=== PATIENT | female | born 1965 | race Caucasian/White ===

== ENCOUNTER → 2018-01-30 | Outpatient (CLI) | payer MEDICARE, OTHER ==
--- NOTE | 2018-01-30 16:49 | RADIOLOGY REPORT (SQ) ---
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 TECHNIQUE: Noncontrast scanning from skull base through lung apices with review of bone, soft tissue and lung windows. Reconstructed coronal and sagittal MPR images reviewed. All images stored on PAC S. All CT scanners at this facility use dose modulation, iterative reconstruction, and/or weight based d osing when appropriate to reduce radiation dose to as low as reasonably achievable (ALARA). [facility]: Dose Right [facility]: CareDose [facility]: Dose Right [facility]: Teradose 4D [facility]: [facility]els Sleep RADIATION DOSE: 20.4 mGy. LIMITATIONS: None. FINDINGS: SKULL BASE: Inferior brain parenchyma unremarkable MAJOR SALIVARY GLANDS: No solid or cystic masses. No inflammatory changes. LYMPHADENOPATHY: No adenopathy. MUCOSAL MASSES OR ASYMMETRY: No mucosal masses or asymmetry. LARYNX/CORDS: No abnormal findings. LUNG APICES: Clear. BONES: Intact. THYROID: Thyroid is normal size, right lobe 4.5 x 3 x 2.4 cm in size. Left lobe 3.7 x 3 x 2.4 cm in size. Slightly heterogeneous in density without gross masses. PARANASAL SINUSES: Clear. OTHER: No other significant finding. IMPRESSION: NO SIGNIFICANT FINDING IN THE SOFT TISSUES OF THE NECK. TECHNICAL DOCUMENTATION: JOB ID: [id number] Quality ID # [id number]: Final reports with documentation of one or more dose reduction techniques (e.g., Au tomated exposure control, adjustment of the mA and/or kV according to patient size, use of iterative reconstruction technique) 2010 [employer]- All Rights Reserved Reading location - IP/workstation name: [email or web address]
== END ==
LOC: RAD 15:56
PROVIDERS: ATTEND Otolaryngology
DX: E04.2 Nontoxic multinodular goiter (principal); K11.20 Sialoadenitis, unspecified; M54.2 Cervicalgia
CPT/HCPCS: 70490

== ENCOUNTER → 2018-06-27 | Day surgery (SDC) | payer MEDICARE, OTHER ==
[~2018-06-27] MED LIST: BUPIVACAINE HCL 0.5 % INJ/PF 30 ML SDV ONE; LIDOCAINE 1% INJ-PF (10 MG/ML) 30 ML SDV ONE; LIDOCAINE 2% INJ (20 MG/ML) 20 ML MDV ONE; METHYLPREDNISOLONE ACETATE INJ 40 MG/1 ML ML ONE
--- NOTE | 2018-06-27 13:03 | Operative Report ---
PREOPERATIVE DIAGNOSIS: Lumbar Spondylosis POSTOPERATIVE DIAGNOSIS: Lumbar Spondylosis PROCEDURE: Radiofrequency Ablation of medial branches - RT L3 L4 dorsal primary ramus of L5. LT L3 L4 Dorsal primary ramus of L5. DATE OF PROCEDURE: June 27, 2018 ANESTHESIA: Local COMPLICATIONS: None CONSENT: A full description of the procedure was provided including benefits as well as possible complications. All questions were answered and informed consent was given and signed. ASA guidelines for fasting were verified prior to sedation. PROCEDURE IN DETAIL The patient was brought into the fluoroscopy suite and positioned into the prone position on the fluoroscopy table and allowed to adjust to a position of comfort. A grounding pad was placed on the right thigh. The lumbar region was widely prepped with a chloraprep solution, allowed to air dry and draped in standard sterile surgical fashion. Local anesthesia was provided by 1 mL of 1 % lidocaine delivered with a 25 g needle. A 17g 100mm radiofrequency introducer needle was placed to the planned anatomic targets guided with intermittent fluoroscopy with a perpendicular approach to terminally place at the junction of the superior articular process and the transverse process of the right L4 L5 and the base of the sacral ala on the right for the L5 medial branch nerve. The stylets were removed and radiofrequency probes with a 4mm active tip were then inserted. Needle tip position of the probes was verified in the AP, oblique, and lateral views. At each site, the medial branch nerve was stimulated at 2 Hz to a maximum 1-2 volts determined to finalize safe needle and electrode placement. The patient was awake and responsive during this portion of the procedure. Each target was anesthetized with 1-2 mL of 2 % lidocaine for anesthesia for lesioning and then each target was lesioned at 80 degrees Celsius for 2 minutes and 30 seconds. Tissue impedences were noted to be between 250 and 500 Ohms. Electrodes and needles were then removed and the underlying tissues were infiltrated with 1mL of a mixture of 0.25% Bupivacane and 40mg depomedrol. Attention was then turned to the opposite side where the procedure was performed in identical fashion. Bandages were placed over the needle placement sites, the patient then returned to the supine position on a stretcher and transported to the recovery room without hemodynamic, neurologic, or allergic reactions. Fluoroscopic images were printed for hard copy recording and digitally archived. POST PROCEDURE EVALUATION: The patient was comfortable in the recovery room. The patient is aware that pain may worsen before remitting and 4 - 6 weeks may be required prior to the onset of pain relief. IMPRESSION: 1. Technically successful left and right L3 L4 L5 medial branch radiofrequency neurotomy for denervation without complication. 2. RTC in 2 weeks. 3. Estimated Blood Loss: None
== END ==
LOC: RAD 10:23
PROVIDERS: ATTEND Pain Medicine Interventional Pain Medicine
DX: M47.816 Spondylosis without myelopathy or radiculopathy, lumbar region (principal)
CPT/HCPCS: 64635; 64636; J3490 ×3; J1020

== ENCOUNTER 2019-02-21 08:07 | Day surgery (SDC) | payer MEDICARE, OTHER ==
[2019-02-21 08:50] LABS: HEMATOCRIT 44.8 % (36.0-47.0); HEMOGLOBIN 15.2 g/dL (12.0-15.5); MEAN CORPUSCULAR HEMOGLOBIN 32.1 pg (27.0-33.4); MEAN CORPUSCULAR HGB CONC 33.8 g/dL (32.0-36.0); MEAN CORPUSCULAR VOLUME 95 fl (80-97); PLATELET COUNT 235 10^3/uL (150-450); RED BLOOD COUNT 4.73 10^6/uL (3.72-5.28); WHITE BLOOD COUNT 5.6 10^3/uL (4.0-10.5)
[2019-02-21 09:12] LABS: BLOOD UREA NITROGEN 16 mg/dL (7-20); PROTHROMBIN TIME 13.2 SEC (11.4-15.4)
[2019-02-21 09:17] LABS: PARTIAL THROMBOPLASTIN TIME 30.1 SEC (23.5-35.8)
[2019-02-21 11:32] LABS: GLUCOSE,CSF 93 mg/dL (40-70); PROTEIN,CSF 56 mg/dL (12-60)
[2019-02-21 11:44] LABS: APPEARANCE ALL TUBES CLEAR; COLOR ALL TUBES COLORLESS; CSF TOTAL VOLUME 9.8 CC; CSF TUBE NUMBER 3; VOLUME TUBE 2 2.5 CC; VOLUME TUBE 3 2.5 CC; VOLUME TUBE 4 2.8 CC
[2019-02-21 11:45] LABS: RED BLOOD CELL,CSF 0 /uL (0-10)
[2019-02-21 11:46] LABS: WHITE BLOOD CELL,CSF 1 /uL (0-5)
--- NOTE | 2019-02-21 12:55 | RADIOLOGY REPORT (SQ) ---
EXAM DESCRIPTION: LUMBAR PUNCTURE; FLUORO/NEEDLE PLACEMENT/SPINE COMPLETED DATE/TIME: 02/21/2019 11:35 am REASON FOR STUDY: MULTIPLE SCLEROSIS G35 MULTIPLE SCLEROSIS Z79.01 NURSE CLINICIAN (CURRENT) USE OF ANTI COAGULANTS COMPARISON: None. FLUOROSCOPY TIME: 8 seconds 1 images saved to PACS. TECHNIQUE: Fluoroscopic guided lumbar puncture. LIMITATIONS: None. PROCEDURE: After written consent and assessment were obtained, the patient was brought into the fluo roscopy room and placed prone on the table. The patient's lower back was prepped in a sterile fashio n and an entry site was selected under live fluoroscopic guidance. The entry site was anesthetized wi th 1% lidocaine. A 20 gauge needle was advanced through the skin and into the thecal sac at the level of L3-L4. Opening pressure of 17 water units. Closing pressure of 15 water units. After approxima tely 9 ml was drained, the needle was removed and a sterile bandage was placed of the site. Specimen s were sent to the lab for testing. A fluoroscopic spot image was saved to PACS confirming level acc ess. FINDINGS: Clear CSF IMPRESSION: Lumbar puncture under fluoroscopy. No immediate complication. COMMENT: Patient medication list reviewed: Yes- Quality ID# [id number]:Eligible professional attests to doc umenting in the medical record they obtained, updated, or reviewed the patient's current medications. . Quality ID 145: Final reports for procedures using fluoroscopy that document radiation exposure curt silvana, or exposure time and number of fluorographic images (if radiation exposure indices are not avail able) TECHNICAL DOCUMENTATION: JOB ID: [id number] [employer]- All Rights Reserved Reading location - IP/workstation name: [email or web address]
--- NOTE | 2019-02-21 12:55 | RADIOLOGY REPORT (SQ) ---
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 FLUOROSCOPY TIME: 8 seconds 1 images saved to PACS. TECHNIQUE: Fluoroscopic guided lumbar puncture. LIMITATIONS: None. PROCEDURE: After written consent and assessment were obtained, the patient was brought into the fluo roscopy room and placed prone on the table. The patient's lower back was prepped in a sterile fashio n and an entry site was selected under live fluoroscopic guidance. The entry site was anesthetized wi th 1% lidocaine. A 20 gauge needle was advanced through the skin and into the thecal sac at the level of L3-L4. Opening pressure of 17 water units. Closing pressure of 15 water units. After approxima tely 9 ml was drained, the needle was removed and a sterile bandage was placed of the site. Specimen s were sent to the lab for testing. A fluoroscopic spot image was saved to PACS confirming level acc ess. FINDINGS: Clear CSF IMPRESSION: Lumbar puncture under fluoroscopy. No immediate complication. COMMENT: Patient medication list reviewed: Yes- Quality ID# [id number]:Eligible professional attests to doc umenting in the medical record they obtained, updated, or reviewed the patient's current medications. . Quality ID 145: Final reports for procedures using fluoroscopy that document radiation exposure curt silvana, or exposure time and number of fluorographic images (if radiation exposure indices are not avail able) TECHNICAL DOCUMENTATION: JOB ID: [id number] [employer]- All Rights Reserved Reading location - IP/workstation name: [email or web address]
[2019-02-21 13:20] VITALS: BP 121/73
[2019-02-22 16:37] LABS: ALBUMIN SERUM 4.5 g/dL (3.5-5.5); CSF IGG INDEX 0.5 (0.0-0.7); IGG SYNTHESIS RATE CSF -1.4 mg/day (-9.9 TO +3); IGG/ALBUMIN RATIO CSF 0.06 (0.00-0.25); IMMUNOGLOBULIN G CSF 1.5 mg/dL (0.0-8.6)
== END 2019-02-21 13:15 | disposition home or self-care (01) ==
LOC: RAD 08:07
PROVIDERS: ATTEND Specialist
DX: G35 Multiple sclerosis (principal); Z79.01 Long term (current) use of anticoagulants; D64.9 Anemia, unspecified; G47.30 Sleep apnea, unspecified
CPT/HCPCS: 36415; 62270; 77003; 82565; 82784; 82945; 82962; 83916; 84157; 84520; 85027; 85610; 85730; 87070; 87205; 89050

== ENCOUNTER → 2020-04-17 | Outpatient (CLI) | payer MEDICARE, OTHER ==
--- NOTE | 2020-04-17 21:16 | NEURO WORKBENCH EEG REPORT ---
EEG Report Patient: Barb Grover ID: [id number] Referring Doctor: Oswaldo Lowe Date: 04/17/2020 Reason for study: Evaluate Epileptiform activity Medications: Miralax, Zofran, Restoril, Ativan, Colace, Crestor, Vivaflex, Metformin, Jardiance, Synthroid, Oxycodone, Aciphex, Phenergan, Imitrex, Wellbutrin, Melatonin, Trulicity. History: This is a 55 year old female with a history of mild cognitive impairment, chronic pain and opiate use, diabetes, Hyperthyroidism, lumbar degenerative disc disease, arthritis, fibromyalgia, GERD, JUDITH, anemia, anxiety, depression, hypercholesterolemia, and cerebral small vessel ischemic disease. This EEG was requested for evaluation of epileptiform activity. EEG Interpretation: This EEG was recorded during wakefulness and stage I. The awake EEG is characterized by a well organized background with a well developed and reactive posterior dominant rhythm (PDR) of approximately 10 Hz. The remainder of the background consisted of low amplitude diffuse beta activity. The EEG is symmetric in amplitudes and frequencies. There was occasional Mu rhythm noted in the bilateral central regions. Lambda waves were occasionally seen in the occipital leads. Photic stimulation resulted in excellent photic driving, and there was no epileptiform activity elicited with photic stimulation. Hyperventilation resulted in the appearance of diffuse predominantly 5-7 Hz theta activity (normal for age) and no epileptiform activity was elicited. Stage I sleep was achieved and characterized by slow rolling eye movements, slowing of the background rhythm, and POSTs. Stage II sleep was not achieved. There were no definitive epileptiform abnormalities (no sharp waves and no spikes). There were no seizures. There were rare sharply contoured waveforms in the left central region which did not appear definitively epileptiform in etiology, and are likely just benign phase reversals in the double-banana montage as they did not appear impressive in referential montages. The EKG showed a regular rhythm with typically 70-85 beats per minute. EEG Impression: This EEG is within normal limits for age. There was no epileptiform activity or seizures. A single normal routine EEG does not rule out the possibility of epilepsy. If there is high clinical suspicion for epilepsy, then additional EEG evaluation should be considered with a sleep-deprived EEG or more prolonged EEG monitoring. INTERPRETING NEUROLOGIST: Hilton Bolaños MD Board certified by the [place] [employer] in Neurology, Clinical Neurophysiology, and Sleep Medicine [facility]
== END ==
LOC: NEURO 12:20
PROVIDERS: ATTEND Pediatrics
DX: G31.84 Mild cognitive impairment of uncertain or unknown etiology (principal); Z79.891 Long term (current) use of opiate analgesic; Z79.899 Other long term (current) drug therapy
CPT/HCPCS: 95819

== ENCOUNTER → 2020-05-19 | Outpatient (CLI) | payer MEDICARE, OTHER ==
--- NOTE | 2020-05-19 12:47 | EKG REPORT ---
SEVERITY:- BORDERLINE ECG - SINUS RHYTHM PROBABLE LEFT ATRIAL ABNORMALITY : Confirmed by: Mayra Palomo MD 19-May-2020 12:46:47
== END ==
LOC: OD 12:02
PROVIDERS: ATTEND Nurse Practitioner Family
DX: Z79.891 Long term (current) use of opiate analgesic (principal)
CPT/HCPCS: 93005; 93010